=== PATIENT | male | born 1995 | race Caucasian/White ===

== ENCOUNTER 2016-12-22 14:52 | Emergency (ER) | payer SELFPAY ==
[2016-12-22 15:08] VITALS: BP 137/79
== END 2016-12-22 15:58 | disposition home or self-care (01) ==
LOC: ED 14:52
DX: S61.432A Puncture wound without foreign body of left hand, initial encounter (principal); W22.8XXA Striking against or struck by other objects, initial encounter; Y93.89 Activity, other specified; Y99.8 Other external cause status; Y92.89 Other specified places as the place of occurrence of the external cause
CPT/HCPCS: 90715

== ENCOUNTER 2019-04-30 08:11 | Emergency (ER) | payer SELFPAY ==
[~2019-04-30] VITALS: Ht 167.6 cm; Wt 83.1 kg
[2019-04-30 08:14] VITALS: Ht 167.6 cm; Wt 83.1 kg
[2019-04-30 10:18] VITALS: BP 118/74
== END 2019-04-30 10:18 | disposition home or self-care (01) ==
LOC: ED 08:11
DX: J11.1 Influenza due to unidentified influenza virus with other respiratory manifestations (principal)
CPT/HCPCS: 87804; J1885; Q0162

== ENCOUNTER 2019-05-05 21:59 | Emergency (ER) | payer SELFPAY ==
[~2019-05-05] VITALS: Ht 167.6 cm; Wt 82.1 kg
[2019-05-05 22:29] VITALS: Ht 167.6 cm; Wt 82.1 kg
[2019-05-06 02:11] VITALS: BP 133/77
== END 2019-05-06 02:12 | disposition home or self-care (01) ==
LOC: ED 21:59
DX: J01.90 Acute sinusitis, unspecified (principal)